=== PATIENT | female | born 2000 | race Caucasian/White ===

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

== ENCOUNTER 2022-02-07 13:15 | Emergency (ER) | payer OTHER, SELFPAY ==
[2022-02-07 13:37] VITALS: BP 109/73; PULSE 80; RESP 17; TEMP 36.7; O2SAT 100; BMI 21.4
== END 2022-02-07 19:58 | disposition left against medical advice (07) ==
PROVIDERS: Emergency Provider Emergency Medicine; PCP Physician Assistant
DX: Z04.1 Encounter for examination and observation following transport accident (principal); M54.50 Low back pain, unspecified; M79.652 Pain in left thigh; M54.2 Cervicalgia
CPT/HCPCS: 99281

== ENCOUNTER 2023-03-23 16:18 | Outpatient (AMB) | payer OTHER, SELFPAY ==
[2023-03-23 16:29] VITALS: PULSE 152; TEMP 37.7; O2SAT 99; BMI 19.8
--- NOTE | 2023-03-23 16:29 | MHC.OFVISPED ---
Intake Vital Signs 03/23/23 16:29 Height 5 ft 2 in Height percentile 25 Weight 108 lb 4 oz Weight percentile 25 Measurement Type Standing Scale BMI 19.8 BMI percentile 25 Temp 99.8 F Temp Source Temporal Artery Scan Pulse 152 H Pulse Source Pulse Oximeter Pulse Oximetry (%) 99 Pediatric Intake Visit Reasons: Radiating shoulder pain x 1 wk Allergies No Known Allergies Allergy (Verified 03/23/23 17:13) Medication List - Last Reconciled 03/23/23 by Dinora Cary MD HPI Radiating shoulder pain x 1 wk Details: for one week she has had pain in RLQ and RUQ. it radiates to her shoulder. it is sharp and uncomfortable .she also has nausea but no vomiting. she is sexually active and is not using any control or condoms. she last had sex 4 d ago and denies pain with intercourse. she also denies any vaginal discharge or urinary sxs. she has been having irregular menstrual bleeding for the past few weeks. her last nml period was 02/18 and then she started bleeding again a couple weeks later. she denies fever. [facility] Family History Mother No problems noted. Social History (Updated 03/23/23 @ 16:30 by Anthony Betts CMA) Housing: House Substance Use Type: Marijuana Advance Directives: No Advance Directives Information Provided: No Cognitive needs: No Hearing needs: No Vision needs: No Review of Systems Const Denies fever(s) GI Reports as per HPI Reports as per HPI Pediatric Exam Const Constitutional General: ill appearing and tired appearing [facility] Mouth: Abnormal oral and palatal mucosa present (dry) Resp Effort & Inspection: normal respiratory effort Auscultation: clear to auscultation bilaterally Cardio Rate: tachycardic Rhythm: regular rhythm GI Inspection (pedi): Yes normal to inspection Palpation: Soft to palpation and Tenderness to palpation present (GI) in the RUQ Auscultation: normal bowel sounds Assessment & Plan Assessment & Plan (1) RUQ pain: Code(s): R10.11 - Right upper quadrant pain Plan: suspect PID with [id number] syndrome (hepatic involvement) but could also have ruptured atopic or missed spontaneous ab. renal stone also possible but less likely. advised pt needs to go to ER [facility] for further eval. expect called Coding Level of Care Code Est Pt Level 4 (12440) Diagnoses RUQ pain R10.11
== END 2023-03-23 16:59 | disposition home or self-care (01) ==
LOC: HO.HMGP 16:18
PROVIDERS: Visit Provider Pediatrics
DX: R10.11 Right upper quadrant pain (principal)
CPT/HCPCS: 99214

== ENCOUNTER 2023-03-23 17:08 | Emergency (ER) | payer OTHER, SELFPAY ==
--- NOTE | 2023-03-23 | ECG_ITS ---
Test Reason : ABDOMINAL PAIN Blood Pressure : / mmHG Vent. Rate : 093 BPM Atrial Rate : 093 BPM P-R Int : 142 ms QRS Dur : 072 ms QT Int : 328 ms P-R-T Axes : 067 063 001 degrees QTc Int : 407 ms Normal sinus rhythm Normal ECG No previous ECGs available Referred By: Generic ED Physician Electronically Signed By:Jhon Belle
--- NOTE | ~2023-03-23 | US_ITS ---
EXAMINATION: US ABDOMEN LIMITED CLINICAL INFORMATION: Right-sided abdominal pain. COMPARISON: None available. TECHNIQUE: Real-time imaging of the right upper quadrant abdominal viscera. FINDINGS: GALLBLADDER: Normal. The gallbladder is physiologically distended without evidence of stones, sludge, polyps, wall thickening or pericholecystic fluid. COMMON BILE DUCT: Normal in caliber measuring 0.2 cm in diameter. FREE FLUID: None. US/US abdomen limited IMPRESSION: Unremarkable right upper quadrant ultrasound.
--- NOTE | ~2023-03-23 | US_ITS ---
EXAMINATION: US PELVIS CLINICAL INFORMATION: Pain COMPARISON: None available. TECHNIQUE: Ultrasound of the pelvis is performed using both transabdominal and transvaginal transducers along with Doppler. Transvaginal imaging is performed due to inadequate visualization transabdominally. FINDINGS: The uterus is anteverted and measures 8.3 x 3 x 5.8 cm in dimension. No focal uterine lesion. Endometrial thickness is normal measuring 0.1 cm. Right ovary measures 3.8 x 2 9 x 3.8 cm. There is a 1.1 x 1.5 x 1 minimally complex right ovarian cyst with slightly thickened echogenic wall probably representing a physiologic corpus luteal cyst. There is an irregularly-shaped isoechoic solid area adjacent to the right ovary measuring 1.9 x 2 x 0.9 cm. This has minimal vascularity. There is a 0.7 x 1.2 x 0.7 cm right adnexal or paraovarian simple cyst. The left ovary is normal and measures 3.1 x 2.8 cm. There is a moderate amount of fluid in the pelvis. US/US pelvic and transvaginal IMPRESSION: Probable small physiologic right ovarian cyst. 1.9 x 2 x 0.9 cm irregularly-shaped isoechoic solid area adjacent to the right ovary. 0.7 x 1.2 x 0.7 cm simple right adnexal or paraovarian cyst. Moderate amount of fluid in the pelvis. Short-term follow-up pelvic ultrasound in several months recommended.
[2023-03-23 17:13] VITALS: BP 152/90; PULSE 154; RESP 18; TEMP 36.9; O2SAT 97; BMI 132.7
--- NOTE | 2023-03-23 17:14 | ED.ABDPAIN ---
HPI - Abdominal Pain General Chief Complaint: Abdominal Pain Stated Complaint: Abd pain Time Seen by Provider: 03/23/23 17:30 History of Present Illness HPI narrative: Pt is a 22yo female who presents to the ED with 1week of abd pain. Pt states she woke up in the middle of the night about a week ago with 10/10 abdominal pain in the R pelvic and lower abdomen. The pain is described as sharp and tight. It was associated with back pain that radiated up to the neck. The back and neck pain subsided after about 3-4 days but the pt continues to have 7-8/10 abdominal pain in the RUQ and R pelvic area. Pt states pain is worse with movement and sitting up. Pt also notes mild nausea with waking up. Pt notes that for the past month until today she has been bleeding vaginally, atypical of her normal menses. Pt denies any control or daily medications. She notes that she took ibuprofen for the pain without relief. Denies vaginal discharge, dysuria, vomiting, diarrhea, or constipation. Pt notes no medical hx or allergies. Related Data Allergies Allergy/AdvReac Type Severity Reaction Status Date / Time No Known Allergies Allergy Verified 03/23/23 17:13 Review of Systems Constitutional: Denies chills, Denies fever(s) and Denies headache(s) Denies dizziness and Denies headache(s) Cardiovascular: Denies chest pain, Reports rapid heart rate (per pt, since arriving at hospital d/t anxiety), Denies lightheadedness and Denies dyspnea Respiratory: Denies dyspnea Gastrointestinal: Reports abdominal pain, Denies constipation, Denies diarrhea, Reports nausea and Denies vomiting Genitourinary: Reports abnormal vaginal bleeding, Denies difficulty voiding, Denies dysuria, Reports pelvic pain and Denies vaginal discharge Musculoskeletal: Denies back pain Denies dizziness and Denies headache(s) [facility] Family History Family History Mother No problems noted. Social History Social History (Updated 03/23/23 @ 16:30 by Anthony Betts CMA) Housing: House Smoked in Last 30 Days: No Use of substances other than those prescribed or required for medical reasons: No Substance Use Type: Marijuana Advance Directives: No Advance Directives Information Provided: No Patient : No Cognitive needs: No Hearing needs: No Vision needs: No Physical Exam ED Vital Signs: Vital Signs - 24 hr 03/23/23 17:13 03/23/23 18:28 03/23/23 19:48 Temperature 98.4 F 98.3 F Pulse Rate 154 H 101 H 113 H Respiratory Rate 18 16 Blood Pressure 152/90 H 124/77 Pulse Oximetry 97 100 Oxygen Delivery Method Room Air Room Air BMI result Body Mass Index 132.7 Const General: cooperative, comfortable, no acute distress, alert and awake Orientation/consciousness: patient oriented x3 HENMT Head: Yes normal to inspection Ears: hearing grossly normal bilaterally General nose exam: Normal external nose present Resp Effort & Inspection: normal respiratory effort and able to speak in complete sentences Auscultation: clear to auscultation bilaterally GI Inspection: Yes normal to inspection Palpation (GI): Soft to palpation and Tenderness to palpation present (GI) in the RUQ and other (right pelvic pain); psoas sign negative Auscultation: normal bowel sounds Neuro General: patient oriented x3 Course Course Course Narrative: RME: 22yo F w/no sig PMHx c/o epigastric and RLQ abd pain x1 week & vaginal bleeding x3 weeks (1-2 tampons a day). Denies N/V, urinary symptoms or vaginal discharge Patient tachycardic in the 150s, abdomen soft with RUQ/epigastric and RLQ tenderness Labs, UA, Lactic/blood cx ordered Full HPI, ROS and PE to be performed by primary ED provider. Reevaluation(s) Reevaluation #1: Patient reports that her pain has greatly improved. Her heart rate has improved as well. The patient has been on the artist scientific, when staff is not in the room discussed with her, her heart rate is sinus in the 90s to low 100s. As soon as staff such as myself oxygen cerumen discussed with her for heart rate increases to 120s to 130s. She reports that she feels anxious. Patient's ultrasound were discussed with her, she has a right ovarian cyst and possibly a ruptured right paraovarian cyst. No fever or white count to suggest abscess. Patient be discharged to follow-up with OBGYN Time: 20:07 Medical Decision Making Medical Decision Making MDM Narrative: Patient presents quite tachycardic at 154bpm., it appears sinus, EKG is pending. Labs are pending. She has pain in the right abdomen, right upper quadrant and right pelvic area. Will get ultrasound of gallbladder as well as the pelvis to evaluate for ovarian cyst/ruptured ovarian cyst. Ovarian torsion is favored to be less likely as the going on for 1 week and her pain is actually her tachycardia is heavily influenced by anxiety. After 1 L IV fluids and Toradol her heart rate is down to 92. Differential Diagnosis Differential Diagnoses: The differential diagnosis associated with the presentation includes (ruptured ovarian cyst, ovarian torsion, PID, intrauterine , cholecystitis, acute appendicitis) Lab Data 03/23/23 17:53 03/23/23 17:53 Labs: Lab Results 03/23/23 03/23/23 Range/Units 17:53 19:44 WBC 7.1 (4.8-10.8) X10*3/uL RBC 4.13 L (4.20-5.50) X10*6/uL Hgb 12.4 (12.0-16.0) g/dl Hct 36.6 L (37.0-47.0) % MCV 88.6 (80.0-98.0) fL MCH 30.0 (27.0-33.0) pg MCHC 33.9 (31.0-35.0) g/dl RDW 11.9 (11.0-16.0) % Plt Count 425 H (160-400) X10*3/uL MPV 10.2 (9.4-12.3) fL Immature Gran % (Auto) 0.3 (0.0-0.4) % Neut % (Auto) 73.3 H (45-73) % Lymph % (Auto) 18.5 L (20-40) % [place] % (Auto) 4.5 (2-11) % Eos % (Auto) 3.1 (0-4) % Baso % (Auto) 0.3 (0-2) % Lymph # (Auto) 1.3 (1.2-4.9) X10*3/uL [place] # (Auto) 0.3 (0.1-1.2) X10*3/uL Eos # (Auto) 0.2 (0.0-0.4) X10*3/uL Baso # (Auto) 0.0 (0.0-0.2) X10*3/uL Abs Immat Gran (auto) 0.02 (0.00-0.03) X10*3/uL Absolute Neuts (auto) 5.2 (2.0-8.3) x10*3/uL Absolute Nucleated RBC 0.000 (0.0-0.012) X10*3/uL Nucleated RBC % (auto) 0.0 (0.0-0.2) /100WBC PT 13.5 H (11.1-13.3) SEC INR 1.1 (0.9-1.1) Sodium 140 (135-145) mmol/L Potassium 3.3 (3.3-5.1) mmol/L Chloride 105 (96-108) mmol/L Carbon Dioxide 24 (22-29) mmol/L Anion Gap 14 (12-20) BUN 9 (9-16) mg/dL Creatinine 0.74 (0.5-1.4) mg/dL Estim Creat Clear Calc -5.0 Estimated GFR > 60 Random Glucose 103 (60-115) mg/dL Lactic Acid 1.3 (0.5-2.0) mmol/L Calcium 9.5 (8.4-10.2) mg/dL Magnesium 2.0 (1.6-2.6) mg/dL Total Bilirubin 0.2 (0.0-1.0) mg/dL Direct Bilirubin < 0.2 (0.0-0.5) mg/dL AST 15 (5-31) U/L ALT 7 (0-31) U/L Alkaline Phosphatase 58 (39-117) U/L Total Protein 7.9 (6.5-8.0) g/dL Albumin 4.3 (3.5-5.0) g/dL Lipase 8 (8-78) U/L Beta HCG, Quant < 2 mIU/mL Urine Color Yellow Urine Appearance Clear Urine pH 5.5 (5.0-9.0) Ur Specific [place] 1.020 (1.005-1.025) Urine Protein Negative (Neg-Trace) mg/dL Urine Glucose (UA) Negative (Negative) mg/dL Urine Ketones 40 (Negative) mg/dL Urine Blood Moderate (2+) H (Negative) Urine Nitrite Negative (Negative) Ur Leukocyte Esterase Negative (Negative) Urine RBC 0-2 (0-2) /HPF Urine WBC 0-5 (0-5) /HPF Ur Squamous Epith Cells 11-20 (0-2) /HPF Urine Bacteria None Seen (None Seen) Hyaline Casts 0-2 (0-2) /LPF Urine Test NEGATIVE (NEGATIVE) Medications Administered Discontinued Medications Generic Name Dose Route Start Last Admin Trade Name Silverq PRN Reason Stop Dose Admin Sodium Chloride 1,000 mls @ 999 mls/hr 03/23/23 18:00 03/23/23 18:18 Ns IV 03/23/23 19:00 999 mls/hr .Q1H1M COSTA Administration Ketorolac Tromethamine 30 mg 03/23/23 17:55 03/23/23 18:17 Ketorolac Tromethamine 30 Mg/Ml Vial IVPUSH 03/23/23 17:56 30 mg ONCE ONE Administration Discharge Plan Discharge Clinical Impression: Abdominal pain, Ovarian cyst, Tachycardia Patient Disposition: Home, Self-Care Instructions: Ovarian Cyst (ED) Additional Instructions: Your blood work was reassuring. Your urine sample did not show any sign of infection Your ultrasound showed a right ovarian cyst and possibly a right paraovarian cyst rupture Use ibuprofen/Tylenol for pain as well as warm compresses Follow-up with OBGYN, you may call Dr. Rousseau's office at the number provided Referrals: Dorian Rousseau MD [Physician] - (ovarian cysts) Interventions: ED Discharge Assessment Last Done: 03/23/23 20:29
[2023-03-23 18:02] LABS: MANUAL DIFF FLAG NO
[2023-03-23 18:04] LABS: Basophils Percent Auto 0.3 % (0-2); Eosinophils Absolute Auto 0.2 X10*3/uL (0.0-0.4); Eosinophils Percent Auto 3.1 % (0-4); Hematocrit 36.6 % (37.0-47.0); Hemoglobin 12.4 g/dl (12.0-16.0); Imm Gran Abs Auto 0.02 X10*3/uL (0.00-0.03); Imm Gran Pct Auto 0.3 % (0.0-0.4); Lymphocytes Absolute Auto 1.3 X10*3/uL (1.2-4.9); Lymphocytes Percent Auto 18.5 % (20-40); Mean Corpuscular HGB Conc 33.9 g/dl (31.0-35.0); Mean Corpuscular Volume 88.6 fL (80.0-98.0); Mean Platelet Volume 10.2 fL (9.4-12.3); Monocytes Absolute Auto 0.3 X10*3/uL (0.1-1.2); Monocytes Percent Auto 4.5 % (2-11); Neutrophils Absolute Auto 5.2 x10*3/uL (2.0-8.3); Neutrophils Percent Auto 73.3 % (45-73); Platelet Count 425 X10*3/uL (160-400); Red Blood Count 4.13 X10*6/uL (4.20-5.50); Red Cell Distribution Width 11.9 % (11.0-16.0); White Blood Count 7.1 X10*3/uL (4.8-10.8)
[2023-03-23 18:08] LABS: INTERNATIONAL NORM RATIO 1.1 (0.9-1.1); Prothrombin Time 13.5 SEC (11.1-13.3)
[2023-03-23 18:16] LABS: Lactic Acid 1.3 mmol/L (0.5-2.0)
[2023-03-23] MEDS: Ketorolac Tromethamine 30 MG/ML VIAL IVPUSH (18:17)
[2023-03-23] MEDS: 0.9 % Sodium Chloride 1,000 ML 999 ML IV (18:18)
[2023-03-23 18:20] LABS: Alanine Aminotransferase 7 U/L (0-31); Albumin Level 4.3 g/dL (3.5-5.0); Alkaline Phosphatase 58 U/L (39-117); Anion Gap 14 (12-20); Aspartate Amino Transferase 15 U/L (5-31); Bilirubin Direct < 0.2 mg/dL (0.0-0.5); Bilirubin Total 0.2 mg/dL (0.0-1.0); Blood Urea Nitrogen 9 mg/dL (9-16); Calcium 9.5 mg/dL (8.4-10.2); Carbon Dioxide 24 mmol/L (22-29); Chloride 105 mmol/L (96-108); Estimated Glomerular Filt Rate > 60; Glucose Random 103 mg/dL (60-115); Lipase 8 U/L (8-78); Potassium 3.3 mmol/L (3.3-5.1); Sodium 140 mmol/L (135-145); Total Protein 7.9 g/dL (6.5-8.0)
[2023-03-23 18:28] VITALS: PULSE 101
[2023-03-23 19:20] LABS: HCG Quantitative < 2 mIU/mL
[2023-03-23 19:48] VITALS: BP 124/77; PULSE 113; RESP 16; TEMP 36.8; O2SAT 100
[2023-03-23 20:00] LABS: Appearance Urine Clear; Color Urine Yellow; Glucose Urine UA Negative (Negative); Leukocyte Esterase Urine Negative (Negative); Nitrite Urine Negative (Negative); PH 5.5 (5.0-9.0); UMIC TRIGGER UACC YES; Urine Blood Moderate (2+) (Negative); Urine Ketones 40 mg/dL (Negative); Urine Protein Negative (Neg-Trace)
[2023-03-23 20:01] LABS: UPreg QC Valid YES; Urine Pregnancy NEGATIVE (NEGATIVE)
--- NOTE | 2023-03-23 20:05 | PC.NURSE ---
Pt ca&ox4, no signs of distress. Pt denies pain. Pt resting quietly with family at bedside. Plan of care ongoing.
[2023-03-23 20:09] LABS: Bacteria Urine None Seen (None Seen); Hyaline Casts Urine 0-2 /LPF (0-2); RBC Urine 0-2 /HPF (0-2); WBC Urine 0-5 /HPF (0-5)
== END 2023-03-23 20:29 | disposition home or self-care (01) ==
PROVIDERS: Physician Assistant; Emergency Provider Internal Medicine
DX: N83.291 Other ovarian cyst, right side (principal); R00.0 Tachycardia, unspecified; R10.2 Pelvic and perineal pain; F12.90 Cannabis use, unspecified, uncomplicated
CPT/HCPCS: 36415; 76705; 76830; 76856; 80048; 80076; 81001; 81003; 81025; 83605; 83690; 83735; 84702; 85025; 85610; 87040; 93005; 96361; 96374; 99284; 99285; J1885

== ENCOUNTER → 2023-03-23 18:26 | Outpatient (BNV) | payer OTHER, SELFPAY | PROVIDERS: Emergency Provider Internal Medicine; Visit Provider Internal Medicine Cardiovascular Disease | DX: R10.9 Unspecified abdominal pain (principal) | CPT/HCPCS: 93010 ==

== ENCOUNTER 2023-03-24 17:07 | Outpatient (REF) | payer OTHER, SELFPAY ==
[2023-03-25 03:52] LABS: CT PCR DETECTED (Not Detect.); NG PCR NOT DETECTED (Not Detect.)
== END 2023-03-24 17:08 | disposition home or self-care (01) ==
LOC: HO.LNP 17:07
PROVIDERS: Visit Provider Pediatrics
DX: R10.11 Right upper quadrant pain (principal)
CPT/HCPCS: 0353U

== ENCOUNTER 2023-03-25 16:25 | Outpatient (AMB) | payer OTHER, SELFPAY ==
--- NOTE | 2023-03-25 16:25 | A.OFFVISP_ITS ---
Intake Vital Signs 03/25/23 16:28 Height 5 ft 2 in Height percentile 25 Weight 110 lb 4 oz Weight percentile 25 Measurement Type Standing Scale BMI 20.2 BMI percentile 50 Temp 97.4 F Temp Source Temporal Artery Scan Pulse 136 H Pulse Source Pulse Oximeter Pulse Oximetry (%) 99 Pediatric Intake Visit Reasons: Discuss results Allergies No Known Allergies Allergy (Verified 03/25/23 16:26) Medication List - Last Reconciled 03/25/23 by Dinora Cary MD No Known Home Meds HPI Discuss results Details: seen 2 d ago and referred ER d/t concern for PID. no eval done for PID - did have extensive eval with labs, pelvic US and received IVF and pain meds. pelvic US sig for ovarian cyst thought to be etiology of sxs. she reports feeling better today. had GC/CT test done yesterday which is + for CT. she denies any sxs prior to recent sxs. she has been with current partner for 6 mos and does not think he would have cheated on her. she was sexually active with one previous partner without condoms so isnt sure if this was who she got it from. current partner has never had any sxs [facility] Family History Mother No problems noted. Social History Housing: House Substance Use Type: Marijuana Cognitive needs: No Hearing needs: No Vision needs: No Review of Systems Const Reports as per HPI GI Reports as per HPI Reports as per HPI Pediatric Exam Const Constitutional General: no acute distress Psych Other: appropriately tearful/upset during discussion Assessment & Plan Assessment & Plan (1) Chlamydia: Code(s): A74.9 - Chlamydial infection, unspecified Plan: long discussion re CT infection and PID. will treat with doxy. EPT rx also provided today and counseled re need to use condoms or avoid sex until both partners are treated. also discussed testing for HIV/syphilis. orders placed. also discussed IAIN in 2 weeks with f/u appt after results are done. also discussed need for condoms in future to prevent STIs. Orders: Orders HIV Ab/Ag Today A74.9 - Chlamydial infection, unspecified Syphilis Screen Today A74.9 - Chlamydial infection, unspecified Medications: New doxycycline monohydrate 100 mg PO BID 14 days 28 tabs 0RF doxycycline monohydrate 100 mg PO BID 14 days 28 tabs 0RF Coding Level of Care Code Est Pt Level 4 (74687) Diagnoses Chlamydia A74.9
[2023-03-25 16:28] VITALS: PULSE 136; TEMP 36.3; O2SAT 99; BMI 20.2
== END 2023-03-25 17:00 | disposition home or self-care (01) ==
LOC: HO.HMGP 16:25
PROVIDERS: Visit Provider Pediatrics
DX: A74.9 Chlamydial infection, unspecified (principal)
CPT/HCPCS: 99214

== ENCOUNTER 2023-04-15 10:11 | Outpatient (AMB) | payer OTHER, SELFPAY ==
[2023-04-15 10:13] VITALS: BP 106/60; BMI 19.2
--- NOTE | 2023-04-15 10:13 | MHC.OFFVIS ---
Intake Vital Signs 04/15/23 10:13 Height 5 ft 2 in Weight 105 lb BMI 19.2 BP 106/60 Intake Visit Reasons: ER follow up Intake Note: rt ovarian cyst Procurement Technician Required: No Information Interpreted: non-clinical & clinical Medical Assistant Cardiology: Medical Assistant Cardiology Present (Rebecca FRANCO) Accompanied by: Self / Same As Patient Allergies No Known Allergies Allergy (Verified 04/15/23 10:16) Is last menstrual period known: Yes Last menstrual period: 03/02/23 HPI HPI Comments History of Present Illness Details Patient is here for an ED follow-up she has previously reported an ovarian cyst that was ruptured, irregular menses (bled for about 6 weeks up until March 22), and diagnosis of chlamydia. She reports that she completed about half of the doxycycline due to GI FX. Her partner has been treated she has not had any unprotected intimacy. She is not on her patch due to it falling off her arm. She does have interest in starting control at this point. She reports she is feeling much better since her antibiotic was started and is currently not in pain today. She denies any contraindications to control such as: migraines with aura, history of DVT or pulmonary emboli, high blood pressure, liver disease, thrombolic disorders, Lupus, +MARIA, breast cancer, or smoking. [facility] Family History Mother No problems noted. Social History Housing: House Substance Use Type: Marijuana Cognitive needs: No Hearing needs: No Vision needs: No Female Reproductive History Menstrual Date of last menstrual period: 03/02/23 Review of Systems Const All systems reviewed & are unremarkable except as noted in HPI and below Physical Exam Vital Signs: Last Vital Signs BP 106/60 04/15/23 10:13 BMI result Body Mass Index 19.2 Const General: cooperative, healthy appearing and no acute distress Orientation/consciousness: patient oriented x3 GI Inspection: Yes normal to inspection Palpation (GI): Soft to palpation and Other GI palpation findings present (Nontender) Rectal Exam - Female: visual inspection normal General: Yes bladder normal to palpation External Female Exam: normal appearance of the urethra Speculum Exam - Vagina: normal appearance of the vagina, normal palpation and normal vaginal discharge Speculum Exam - Cervix: normal appearance of the cervix and normal palpation Bimanual exam- vagina & uterus: normal bimanual exam, normal palpation, uterine size normal, bladder normal to palpation, normal palpation, uterine shape normal and non-tender Bimanual Exam- Adnexa, other: normal adnexae Neuro General: patient oriented x3 Results AMB Test Urine AMB Test Urine Negative Last Edit by Rebecca Martin, TEST DEPARTMENT HELPER on 04/15/23 10:28 AMB Urinalysis Dipstick UR Leukocytes Negative Last Edit by Rebecca Martin, [facility] on 04/15/23 10:29 UR Nitrite Negative Last Edit by Rebecca Martin, [facility] on 04/15/23 10:29 UR Urobilinogen Normal Last Edit by Rebecca Martin, [facility] on 04/15/23 10:29 UR Protein 100 Last Edit by Rebecca Martin, [facility] on 04/15/23 10:29 UR Ph 5.5 Last Edit by Rebecca Martin, [facility] on 04/15/23 10:29 UR Blood Trace Last Edit by Rebecca Martin, [facility] on 04/15/23 10:29 UR Specific [place] 1.030 Last Edit by Rebecca Martin, [facility] on 04/15/23 10:29 UR Ketone Trace Last Edit by Rebecca Martin, [facility] on 04/15/23 10:29 UR Bilirubin Small Last Edit by Rebecca Martin, [facility] on 04/15/23 10:29 UR Glucose Negative Last Edit by Rebecca Martin [facility] on 04/15/23 10:29 Results Reviewed Results Reviewed: Laboratory Last Values Urine pH (Clinic) 5.5 04/15/23 10:27 Specific [place] (Clinic) 1.030 04/15/23 10:27 Ur Protein (Clinic) 100 04/15/23 10:27 Ur Ketones (Clinic) Trace 04/15/23 10:27 Urine Blood (Clinic) Trace 04/15/23 10:27 Urine Nitrite Negative 04/15/23 10:27 Urine Bilirubin (Clinic) Small 04/15/23 10:27 Urobilinogen (Clinic) Normal 04/15/23 10:27 Leukocyte Esterase (Clinic) Negative 04/15/23 10:27 Urine Glucose (Clinic) Negative 04/15/23 10:27 Tst Clinic Negative 04/15/23 10:27 Assessment & Plan Assessment & Plan (1) Complex ovarian cyst: Code(s): N83.299 - Other ovarian cyst, unspecified side Plan: Counseled regarding findings of: Complex ovarian cyst, which often is benign, and resolves on their own overtime. Some develop into premalignant or malignant tumors. Further monitoring and evaluation is recommended with US, or possible CT, or MRI study. GYNE/ONC or general gynecology for MD care if indicated for possible surgical consult. Repeat ultrasound close interval follow-up at 6 weeks, Follow up in person for test results. All of her questions and concerns were addressed to the best of my ability and shared decision making. She is agreeable to the plan of care. (2) Chlamydia: Code(s): A74.9 - Chlamydial infection, unspecified Plan: IAIN today. Counseled regarding doxycycline use in to take with food q.12 hours if it needs to be reordered. (3) Irregular menses: Code(s): N92.6 - Irregular menstruation, unspecified Plan: Reviewed causative factors including infection. (4) control counseling: Code(s): Z30.09 - Encounter for other general counseling and advice on contraception Plan: Control Counseling: Patient prefers to start the pill. Reviewed the CDC guidelines for efficacy on control use options handout. Use and side effects of control: Instructed to start the pill within the first 5 days of the menstrual period. Recommended to take pill at same time every day and with food to prevent stomach upset. Switch to bedtime intake with food if still experiencing nausea. Consider setting the cell phone for alerts as a reminder to take the pill at the same time. Use a back up method (condoms or abstinence if needed) if any late or missed doses until the end of the pill pack. Take the dose as soon as possible, and take your regular pill on time. If you miss the pill often, then consider another option of control. Always use condoms for STI prevention if indicated. Instructed patient to take for at least 3 months the body is acclimated to it. Most side effects go away with time in the first three months. Warnings: go to ED if and loss of vision/blindness, severe headache, chest pain or difficulty breathing, severe abdominal pain, or any pain or swelling in an extremity. Return in 3 months for pill check, or sooner if any concerns. All of her questions and concerns were addressed to the best of my ability and shared decision making. She is agreeable to plan of care. [address] [address] Ultrasound Report Signed Patient: Iveth Castelan MR#: [id number] : 2000 Acct:[id number] Age/Sex: 22 / F ADM Date: 03/23/23 Loc: HO.ED Attending Dr: Ordering Physician: Gilmer Don Date of Service: 03/23/23 Procedure(s): US pelvic and transvaginal Accession Number(s): [id number] cc: Gilmer Don ; Physician,Unknown ~ EXAMINATION: US PELVIS CLINICAL INFORMATION: Pain COMPARISON: None available. TECHNIQUE: Ultrasound of the pelvis is performed using both transabdominal and transvaginal transducers along with Doppler. Transvaginal imaging is performed due to inadequate visualization transabdominally. FINDINGS: The uterus is anteverted and measures 8.3 x 3 x 5.8 cm in dimension. No focal uterine lesion. Endometrial thickness is normal measuring 0.1 cm. Right ovary measures 3.8 x 2 9 x 3.8 cm. There is a 1.1 x 1.5 x 1 minimally complex right ovarian cyst with slightly thickened echogenic wall probably representing a physiologic corpus luteal cyst. There is an irregularly-shaped isoechoic solid area adjacent to the right ovary measuring 1.9 x 2 x 0.9 cm. This has minimal vascularity. There is a 0.7 x 1.2 x 0.7 cm right adnexal or paraovarian simple cyst. The left ovary is normal and measures 3.1 x 2.8 cm. There is a moderate amount of fluid in the pelvis. US/US pelvic and transvaginal IMPRESSION: Probable small physiologic right ovarian cyst. 1.9 x 2 x 0.9 cm irregularly-shaped isoechoic solid area adjacent to the right ovary. 0.7 x 1.2 x 0.7 cm simple right adnexal or paraovarian cyst. Moderate amount of fluid in the pelvis. Short-term follow-up pelvic ultrasound in several months recommended. Dictated By: Zoe Gonzales MD Signed By: <Electronically signed by Zoe Gonzales MD in OV> 03/23/231936 DD/ 47 TD/TT: Basting Puller: RESHMA Orders: Orders AMB Urinalysis Dipstick Today R10.2 - Pelvic and perineal pain Bacterial Vaginosis Panel Today Z20.2 - Contact with and (suspected) exposure to infections with a predominantly sexual mode of transmission AMB HCG Urine Test Today Z32.02 - Encounter for test, result negative CT NG by PCR Today Z20.2 - Contact with and (suspected) exposure to infections with a predominantly sexual mode of transmission Coding Level of Care Code New Pt Level 4 (71831) Diagnoses Complex ovarian cyst N83.299 Chlamydia A74.9 Irregular menses N92.6 control counseling Z30.09
== END 2023-04-15 10:50 | disposition home or self-care (01) ==
LOC: HO.HWS 10:11
PROVIDERS: PCP Pediatrics; Visit Provider Advanced Practice Midwife
DX: N83.299 Other ovarian cyst, unspecified side (principal); A74.9 Chlamydial infection, unspecified; N92.6 Irregular menstruation, unspecified; Z30.09 Encounter for other general counseling and advice on contraception; Z32.02 Encounter for pregnancy test, result negative; R10.2 Pelvic and perineal pain
CPT/HCPCS: 99204

== ENCOUNTER 2023-04-15 10:11 | Outpatient (REF) | payer OTHER, SELFPAY ==
[2023-04-15 13:23] LABS: CT PCR NOT DETECTED (Not Detect.); NG PCR DETECTED (Not Detect.)
== END 2023-04-15 10:12 | disposition home or self-care (01) ==
LOC: HO.LNP 10:11
PROVIDERS: PCP Pediatrics; Visit Provider Advanced Practice Midwife
DX: N83.299 Other ovarian cyst, unspecified side (principal); A74.9 Chlamydial infection, unspecified; N92.6 Irregular menstruation, unspecified; Z30.09 Encounter for other general counseling and advice on contraception; Z20.2 Contact with and (suspected) exposure to infections with a predominantly sexual mode of transmission
CPT/HCPCS: 0353U; 81002; 81025; 87480; 87510; 87660; 99202

== ENCOUNTER 2023-04-22 15:00 | Outpatient (AMB) | payer OTHER, SELFPAY ==
--- NOTE | 2023-04-22 15:12 | AM.OFFVISNUR ---
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 Pt denies allergies including lidocaine. No c/o. Pt tolerated injection well and left office in good condition with family. Pt has appt for IAIN 05/19/23. Pt advised if injection site is uncomfortable she can use Tylenol or ibuprofen. Pt verbalizes understanding and agrees with plan. No further questions. Coding Level of Care Code Established Pt Est Pt Level 1 (44347) Patient Type Established History Problem Focused Medical Decision Making Straight Forward Time Spent (min) 20 Assessment & Plan Assessment & Plan Orders: Orders AMB Ceftriaxone Injection Today A54.9 - Gonococcal infection, unspecified Medications: New ceftriaxone 500 mg IM ONCE 1 ea 0RF A54.9 - Gonococcal infection, unspecified
[2023-04-22 15:52] VITALS: BMI 19.8
== END 2023-04-22 15:36 | disposition home or self-care (01) ==
LOC: HO.HWS 15:00
PROVIDERS: PCP Pediatrics; Visit Provider Advanced Practice Midwife
DX: A54.9 Gonococcal infection, unspecified (principal)

== ENCOUNTER → 2023-04-22 15:00 | Outpatient (BNVA) | payer OTHER, SELFPAY | PROVIDERS: PCP Pediatrics; Visit Provider Advanced Practice Midwife | DX: A54.9 Gonococcal infection, unspecified (principal) | CPT/HCPCS: 96372; 99211; J0696 ==

== ENCOUNTER 2023-05-06 12:48 | Outpatient (REF) | payer OTHER, SELFPAY ==
--- NOTE | ~2023-05-06 | US_ITS ---
EXAMINATION: US PELVIS CLINICAL INFORMATION: Pelvic and perineal pain. LMP 04/17/2023. COMPARISON: 03/23/2023 TECHNIQUE: Ultrasound of the pelvis is performed using both transabdominal and transvaginal transducers along with Doppler. Transvaginal imaging is performed due to inadequate visualization transabdominally. FINDINGS: Uterus: The uterus is anteverted and measures 8.5 x 3.2 x 5.4 cm. Uterine echotexture is heterogeneous. The endometrial stripe measures 0.7 cm in thickness. Adnexa: Both ovaries are visualized. There is small pelvic ascites. Right ovary measures 3.8 x 2.3 x 2.6 cm. Peripheral small follicles. Left ovary measures 4.2 x 2.3 x 2.4 cm. US/US pelvic and transvaginal IMPRESSION: Increased ovarian volume with peripheral small follicles. This can be seen in the setting of PCOS. Advise clinical correlation.
== END 2023-05-06 12:49 | disposition home or self-care (01) ==
LOC: HO.US 12:48
PROVIDERS: Visit Provider Advanced Practice Midwife
DX: R10.2 Pelvic and perineal pain (principal)
CPT/HCPCS: 76830; 76856

== ENCOUNTER 2023-06-08 08:11 | Outpatient (REF) | payer OTHER, SELFPAY ==
[2023-06-08 14:51] LABS: CT PCR NOT DETECTED (Not Detect.); NG PCR DETECTED (Not Detect.)
== END 2023-06-08 08:12 | disposition home or self-care (01) ==
LOC: HO.LNP 08:11
PROVIDERS: Visit Provider Advanced Practice Midwife
DX: A74.9 Chlamydial infection, unspecified (principal); Z20.2 Contact with and (suspected) exposure to infections with a predominantly sexual mode of transmission; Z71.2 Person consulting for explanation of examination or test findings
CPT/HCPCS: 0353U; 99212

== ENCOUNTER 2023-06-08 08:11 | Outpatient (AMB) | payer OTHER, SELFPAY ==
--- NOTE | 2023-06-08 08:17 | MHC.OFFVIS ---
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 She is feeling well no concerns of pelvic pain today. She denies any vaginal irritation, discharge or odors. She reports regular menstrual cycles, no history facial acne or unusual facial hair growth. [facility] Family History Mother No problems noted. Social History Housing: House Substance Use Type: Marijuana Cognitive needs: No Hearing needs: No Vision needs: No Female Reproductive History Menstrual Duration of menses: 3-5 days Date of last menstrual period: 05/20/23 control method: none Total pregnancies: 1 Ab spontaneous: 1 Review of Systems Const All systems reviewed & are unremarkable except as noted in HPI and below Physical Exam Vital Signs: Last Vital Signs BP 100/64 06/08/23 08:18 BMI result Body Mass Index 19.8 Const General: cooperative, healthy appearing and no acute distress Orientation/consciousness: patient oriented x3 GI Inspection: Yes normal to inspection Palpation (GI): Soft to palpation and Other GI palpation findings present (Nontender) Rectal Exam - Female: visual inspection normal General: Yes bladder normal to palpation External Female Exam: normal appearance of the urethra Speculum Exam - Vagina: normal appearance of the vagina, normal palpation and normal vaginal discharge Speculum Exam - Cervix: normal appearance of the cervix and normal palpation Bimanual exam- vagina & uterus: normal bimanual exam, normal palpation, uterine size normal, bladder normal to palpation, normal palpation, uterine shape normal and non-tender Bimanual Exam- Adnexa, other: normal adnexae Neuro General: patient oriented x3 Results Reviewed Results Reviewed: [address] [address] Ultrasound Report Signed Patient: Iveth Castelan MR#: [id number] : 2000 Acct:[id number] Age/Sex: 22 / F ADM Date: 05/06/23 Loc: HO.US Attending Dr: Lidia Turner CNM Ordering Physician: Lidia Turner CNM Date of Service: 05/06/23 Procedure(s): US pelvic and transvaginal Accession Number(s): [id number] cc: Lidia Turner CNM~ EXAMINATION: US PELVIS CLINICAL INFORMATION: Pelvic and perineal pain. LMP 04/17/2023. COMPARISON: 03/23/2023 TECHNIQUE: Ultrasound of the pelvis is performed using both transabdominal and transvaginal transducers along with Doppler. Transvaginal imaging is performed due to inadequate visualization transabdominally. FINDINGS: Uterus: The uterus is anteverted and measures 8.5 x 3.2 x 5.4 cm. Uterine echotexture is heterogeneous. The endometrial stripe measures 0.7 cm in thickness. Adnexa: Both ovaries are visualized. There is small pelvic ascites. Right ovary measures 3.8 x 2.3 x 2.6 cm. Peripheral small follicles. Left ovary measures 4.2 x 2.3 x 2.4 cm. US/US pelvic and transvaginal IMPRESSION: Increased ovarian volume with peripheral small follicles. This can be seen in the setting of PCOS. Advise clinical correlation. 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 Clinically not indicated at this time, the next step for diagnosis consideration would be lab work. She is currently is not interested in proceeding with that today she was given information and advised to call back if she does want to consider testing. Return to the office after her 23st birthday this spring for her annual and Pap. Advised to use condoms to prevent any STD exposures. All of her questions and concerns were addressed to the best of my ability and shared decision making. She is agreeable to the plan of care. This note is constructed using voice recognition software. While every effort has been made to ensure accuracy, management trainee program stores errors may have been included. Coding Level of Care Code Est Pt Level 3 (36255) Diagnoses Gonorrhea contact, treated Z20.2 Encounter to discuss test results Z71.2
[2023-06-08 08:18] VITALS: BP 100/64; BMI 19.8
== END 2023-06-08 08:46 | disposition home or self-care (01) ==
PROVIDERS: Visit Provider Advanced Practice Midwife
DX: Z20.2 Contact with and (suspected) exposure to infections with a predominantly sexual mode of transmission (principal); Z71.2 Person consulting for explanation of examination or test findings
CPT/HCPCS: 99213

== ENCOUNTER 2023-06-14 10:04 | Outpatient (AMB) | payer OTHER, SELFPAY ==
--- NOTE | 2023-06-14 10:23 | AM.OFFVISNUR ---
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 LMP 05/20/23. Pt tolerated injection well. She was advised to schedule IAIN in 3 months. Pt verbalizes understanding and agrees with plan. No further questions. 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
[2023-06-14 10:24] VITALS: BP 106/62; BMI 19.6
== END 2023-06-14 10:34 | disposition home or self-care (01) ==
LOC: HO.HWS 10:04
PROVIDERS: Visit Provider Advanced Practice Midwife
DX: Z20.2 Contact with and (suspected) exposure to infections with a predominantly sexual mode of transmission (principal)
CPT/HCPCS: 99213

== ENCOUNTER → 2023-06-14 10:04 | Outpatient (BNVA) | payer OTHER, SELFPAY | PROVIDERS: Visit Provider Advanced Practice Midwife | DX: Z20.2 Contact with and (suspected) exposure to infections with a predominantly sexual mode of transmission (principal) | CPT/HCPCS: 96372; 99212; J0696 ==